=== PATIENT | male | born 1995 | race African-American/Black ===

== ENCOUNTER 2019-09-26 23:26 | Emergency (ER) | payer OTHER ==
[~2019-09-26] VITALS: Ht 187 cm; Wt 72.6 kg
[2019-09-26] MEDS ORDERED: IBUPROFEN 800 MG (MOTRIN) TAB PO STA (23:48)
--- NOTE | 2019-09-27 00:46 | ED Respiratory ---
General Chief Complaint: Cough/Cold/Flu Symptoms Stated Complaint: COUGH,FEVER 102.,SORE THROAT Nursing Triage Note: Pt to [facility] with c/o sore throat, fever/chills, productive cough since last night. Pt reports taking ibuprofen and dayquil without any relief. Pt temp 100.0 F on arrival. Source: patient Exam Limitations: no limitations History of Present Illness Date Seen by Provider: Sep 27, 2019 Time Seen by Provider: 00:10 Initial Comments Here with report of cough, congestion, fever and chills as well as sore throat since last night. Did take ibuprofen and DayQuil which helped some. It continued tonight so he came in. Fever up to 102 at home. Denies nausea, vomiting or diarrhea. Timing/Duration: yesterday Severity: moderate Prior Episodes/Possible Cause: no prior episodes Associated Symptoms: cough, fever/chills, muscle aches, nasal congestion, nasal drainage, sore throat Allergies and Home Medications Allergies Coded Allergies: No Known Drug Allergies (Unverified , 09/26/19) Patient Home Medication List Home Medication List Reviewed: Yes Review of Systems Review of Systems Constitutional: see HPI EENTM: see HPI Respiratory: see HPI Cardiovascular: no symptoms reported Gastrointestinal: No abdominal pain, No nausea, No vomiting Genitourinary: no symptoms reported Musculoskeletal: no symptoms reported Skin: no symptoms reported Psychiatric/Neurological: No Symptoms Reported All Other Systems Reviewed Negative Unless Noted: Yes Past Kyjcdlo-Ibcgnd-Yxfmim Hx Past Med/Social Hx: Reviewed Nursing Past Med/Soc Hx Patient Social History Alcohol Use: Denies Use Recreational Drug Use: No Smoking Status: Never a Smoker Recent Foreign Travel: No Contact w/Someone Who Travel: No Recent Infectious Disease Expo: No Past Medical History Surgeries: No Respiratory: No Cardiac: No Neurological: No Genitourinary: No Gastrointestinal: No Musculoskeletal: No Endocrine: No HEENT: No Family Medical History Reviewed Nursing Family Hx Physical Exam Vital Signs - First Documented 09/26/19 23:46 Temp 37.8 Pulse 95 Resp 19 B/P (MAP) 133/78 (96) Pulse Ox 99 O2 Delivery Room Air Capillary Refill : Less Than 3 Seconds Height: '" Weight: lbs. oz. kg; 20.00 BMI Method: General Appearance: WD/WN, no apparent distress HEENT: PERRL/EOMI, pharyngeal erythema, other (moderate bilateral nasal erythema with clear rhinorrhea) Neck: full range of motion, supple Respiratory: lungs clear, normal breath sounds Cardiovascular: regular rate, rhythm, no murmur Neurologic/Psychiatric: alert, oriented x 3 Skin: normal color, warm/dry Progress/Results/Core Measures Suspected Sepsis Recent Fever Within 48 Hours: Yes Infection Criteria Present: Suspected New Infection New/Unexplained Altered Menta: No Sepsis Screen: Possible Severe Sepsis Risk SIRS Temperature: Pulse: 95 Respiratory Rate: 19 Blood Pressure 133 /78 Mean: 96 Results/Orders Lab Results Laboratory Tests Test 09/26/19 23:42 Range/Units Group A Streptococcus Screen NEGATIVE NEGATIVE Micro Results Microbiology 09/26/19 Influenza Types A,B Antigen ([facility]) - Final, Complete My Orders Orders - TERRY PASCUAL MD Rapid Strep A Screen (09/26/19 23:46) Influenza A And B Antigens (09/26/19 23:46) Ibuprofen Tablet (Motrin Tablet) (09/26/19 23:48) Vital Signs/I&O 09/26/19 23:46 Temp 37.8 Pulse 95 Resp 19 B/P (MAP) 133/78 (96) Pulse Ox 99 O2 Delivery Room Air Capillary Refill : Less Than 3 Seconds Blood Pressure Mean: 96 Progress Note : Progress Note Seen and evaluated. RSV and rapid strep screen ordered. Monitor patient. Ibuprofen 800 mg by mouth given. 0046: Strep and RSV negative. Discharged home with return precautions. Patient verbalize understanding instructions and agreement with plan. Encouraged to get the flu shot when he gets clear of this illness. Departure Impression Primary Impression: Viral upper respiratory infection Disposition: 01 HOME, SELF-CARE Condition: Stable Departure-Patient Inst. Decision time for Depature: 00:46 Referrals: NO,LOCAL PHYSICIAN (PCP/Family) Primary Care Physician Patient Instructions: Viral Upper Respiratory Infection, Adult (DC), Fever, Adult (DC) Add. Discharge Instructions: All discharge instructions reviewed with patient and/or family. Voiced understanding. You may take Tylenol/acetaminophen 1000 mg every 8 hours as needed for fever or pain. Do not take Tylenol/acetaminophen if you are taking [id number] cold medicine such as DayQuil or NyQuil as they both have acetaminophen in them. You may take ibuprofen 600 mg every 8 hours as needed for fever or pain. You may use Afrin nasal spray or the generic, 12 hour relief, 2 sprays to each nostril twice daily for 3 days only and then stop. Do not use more than 3 days. Follow-up with your Dr. in a few days for recheck. Drink plenty of fluids. Return for worse pain, fever, vomiting, weakness, breathing problems or other concerns as needed. Work/School Note: Work Release Form Date Seen in the Emergency Department: Sep 26, 2019 Return to Work: Sep 29, 2019 Restrictions: Return-No Fever (24hrs) Copy Copies To 1: SHA TAYLOR MD, TIMOTHY D MD Sep 27, 2019 00:46
[2019-09-27 00:53] VITALS: BP 133/78
== END 2019-09-27 00:53 | disposition home or self-care (01) ==
LOC: ER 23:32
DX: J06.9 Acute upper respiratory infection, unspecified (principal)
CPT/HCPCS: 87430; 87804